=== PATIENT | female | born 1940 | race Caucasian/White ===

== ENCOUNTER 2016-11-06 18:48 | Emergency (ER) | payer OTHER ==
[~2016-11-06] VITALS: Ht 165.1 cm; Wt 71.2 kg
[~2016-11-06 18:48] MED LIST: ACETAMINOPHEN650 M5 PO; ALAVERT10 MG PO; ALDACTONE25 MG PO; APAP500 PO; ASPIRIN325 PO; ASPIRIN81 M2 PO; BENZOCAINE PO; CARVEDILOL6.25 MG PO; COLACE100 MG PO; D-20002000 UNIT PO; DILAUDID2 MG PO; EFFIENT10 MG PO; KLOR-CON 10 ER10 MEQ PO; LEVAQUIN 500 M500 MG PO; LIPITOR40 MG PO; LORATIDINE 10 M10 M1 PO; MAG-AL PLUS SUS30 ML PO; MAGNESIUM400 MG PO; METOPROLOL SUCC25 M1 PO; MORPHINE PO; MORPHINE SULFAT15 M3 PO; MS CONTIN15 MG PO; NITROSTAT0.4 MG SL; OMEPRAZOLE 20 M20 M1 PO; ONDANSETRON HCL4 M2 PO; ROBAXIN 750 MG750 M1 PO; SENNA PO; TRAMADOL 50 MG50 MG PO; VITAMIN D-32000 UNIT PO; VITAMIN D32000 UNIT PO; ZESTRIL5 MG PO
[2016-11-06 22:03] VITALS: BP 132/74
== END 2016-11-06 22:04 | disposition home or self-care (01) ==
LOC: ER 18:48
DX: M54.5 Low back pain (principal); M25.562 Pain in left knee; M79.644 Pain in right finger(s); M25.512 Pain in left shoulder; I25.2 Old myocardial infarction; K21.9 Gastro-esophageal reflux disease without esophagitis; I10 Essential (primary) hypertension; Z95.0 Presence of cardiac pacemaker; Z85.43 Personal history of malignant neoplasm of ovary; Z88.5 Allergy status to narcotic agent; Z88.2 Allergy status to sulfonamides; V43.52XA Car driver injured in collision with other type car in traffic accident, initial encounter; Y93.I9 Activity, other involving external motion; Y92.481 Parking lot as the place of occurrence of the external cause; Y99.8 Other external cause status

== ENCOUNTER → 2017-06-29 | Outpatient (CLI) | payer OTHER ==
[~2017-06-29] MED LIST changes: +MOBIC7.5 MG PO; +NEURONTIN 300300 M1 PO
== END ==
LOC: ULTRA 05:57
DX: I77.9 Disorder of arteries and arterioles, unspecified (principal); Z88.5 Allergy status to narcotic agent; Z88.2 Allergy status to sulfonamides

== ENCOUNTER → 2017-07-31 | Outpatient (CLI) | payer OTHER | LOC: ULTRA 06:33 | DX: M79.604 Pain in right leg (principal); M79.605 Pain in left leg; M79.89 Other specified soft tissue disorders ==

== ENCOUNTER → 2018-01-15 | Outpatient (CLI) | payer OTHER ==
[~2018-01-15] MED LIST changes: +CO Q-10100 MG PO; +FLONASE 0.05%50 MCG NASAL; +FOSAMAX 70 MG T70 MG PO; +LASIX 20 MG TAB20 MG PO; +METOPROLOL TART25 MG PO; +PROTONIX40 M3 PO
== END ==
LOC: SEN 13:47
DX: J20.9 Acute bronchitis, unspecified (principal)

== ENCOUNTER → 2018-02-16 | Outpatient (CLI) | payer OTHER | LOC: CV 01-04 08:30 → NUC 07:12 → CV 07:12 | DX: I10 Essential (primary) hypertension (principal); I48.91 Unspecified atrial fibrillation ==

== ENCOUNTER → 2018-05-16 | Outpatient (CLI) | payer OTHER ==
--- NOTE | 2018-05-16 15:21 | 2DMMODE ---
[facility] [place] [address] 2 D/M-MODE ECHOCARDIOGRAM Name: DAYANARA WALSH Room #: REG La#: [id number] ������������� Admission: 05/16/18 ������������� Attend Phys: Celso Harrison, Discharge: ��� ������������� ��� Date of : 38 Date of Service: 05/16/18 1520 �� Report #: [id number] �������� ��������������������������������������������[id number] THIS REPORT FOR: //name// APPROVED REPORT Study performed: 05/16/2018 11:20:15 EXAM: Comprehensive 2D, Doppler, and color-flow Echocardiogram Patient Location: Out-Patient Status: routine BSA: 1.69 HR: 60 bpm BP: 136/84 mmHg Rhythm: Pacemaker/irregular Other Information Study Quality: Adequate Indications Atrial Fibrillation Hx: [place], stents, Pacemaker. 2D Dimensions RVDd: 28.79 mm IVSd: 12.11 (7-11mm) LVOT Diam: 19.91 (18-24mm) LVDd: 45.55 mm PWd: 10.94 (7-11mm) Ascending Ao: 39.43 (22-36mm) LVDs: 35.50 (25-40mm) Aortic Root: 40.10 mm Volumes Left Atrial Volume (Systole) Single Plane 4CH: 33.39 mL Single Plane 2CH: 37.37 mL LA ESV Index: 22.00 mL/m2 Aortic Valve AoV Peak Bryan.: 1.10 m/s AO Peak Gr.: 4.86 mmHg LVOT Max P.89 mmHg LVOT Max V: 0.85 m/s JANA Vmax: 2.40 cm2 AI Vmax: 3.96 m/s AI Rich: 2.01 m/s2 AI PHT: 570.27 ms [facility] [address] [place] [address] 2 D/M-MODE ECHOCARDIOGRAM Name: DAYANARA WALSH Room #: [facility]#: [id number] ������������� Admission: 05/16/18 ������������� Attend Phys: Celso Harrison, Discharge: ��� ������������� ��� Date of : 38 Date of Service: 05/16/18 1520 �� Report #: [id number] �������� ��������������������������������������������[id number] Mitral Valve E/A Ratio: 0.7 MV Decel. Time: 268.64 ms MV E Max Bryan.: 0.31 m/s MV A Bryan.: 0.46 m/s MV PHT: 77.91 ms IVRT: 106.11 ms Pulmonary Valve PV Peak Bryan.: 0.65 m/s PV Peak Gr.: 1.71 mmHg Tricuspid Valve TR Peak Bryan.: 2.19 m/s RAP Estimate: 5.00 mmHg TR Peak Gr.: 19.18 mmHg PA Pressure: 24.00 mmHg Left Ventricle The left ventricle is normal size. Mild basal septal hypertrophy is present. Left ventricular systolic function is low normal. LVEF is 50%. Mild diastolic dysfunction is present (impaired relaxation pattern). Right Ventricle The right ventricle is normal size. The right ventricular systolic function is normal. Pacemaker lead is present in the right ventricle. Atria The left atrium size is normal. The right atrium size is normal. Aortic Valve The aortic valve is normal in structure. Moderate aortic regurgitation. There is no aortic valvular stenosis. Mitral Valve Mitral valve leaflets are mildly thickened. Mild mitral regurgitation. Tricuspid Valve The tricuspid valve is normal in structure. Mild to moderate tricuspid regurgitation. Estimated PAP is 25mmHg. Pulmonic Valve The pulmonary valve is normal in structure. Trace pulmonic regurgitation. [facility] [address] 2 D/M-MODE ECHOCARDIOGRAM Name: DAYANARA WALSH Room #: MYRIAM AISHWARYA Tovar#: [id number] ������������� Admission: 05/16/18 ������������� Attend Phys: Celso Harrison, Discharge: ��� ������������� ��� Date of : 38 Date of Service: 05/16/18 1520 �� Report #: [id number] �������� ��������������������������������������������[id number] [employer] Aortic root is mildly dilated at 4.0cm. The ascending aorta is mildly dilated at 3.9cm. IVC is normal in size and collapses >50% with inspiration. Pericardium There is no pericardial effusion. <Conclusion> The left ventricle is normal size. Mild basal septal hypertrophy is present. Left ventricular systolic function is low normal. LVEF is 50%. Mild diastolic dysfunction is present (impaired relaxation pattern). The right ventricle is normal size. Pacemaker lead is present in the right ventricle. The left atrium size is normal. Moderate aortic regurgitation. Mild mitral regurgitation. Mild to moderate tricuspid regurgitation. Estimated PAP is 25mmHg. Aortic root is mildly dilated at 4.0cm. Aortic root is mildly dilated at 4.0cm. There is no pericardial effusion. ��������������������������������������������� <ELECTRONICALLY SIGNED> ���������������������������������������� By: Celso Harrison MD, FACC ��������������������������������������������� 05/16/18 1520 1520 1520 Celso Harrison MD, FACC /INF
== END ==
LOC: CV 10:58
DX: I08.3 Combined rheumatic disorders of mitral, aortic and tricuspid valves (principal); I48.91 Unspecified atrial fibrillation; I25.2 Old myocardial infarction; Z95.5 Presence of coronary angioplasty implant and graft

== ENCOUNTER 2018-12-02 05:28 | Emergency (ER) | payer OTHER ==
[~2018-12-02] VITALS: Ht 162.6 cm; Wt 57.8 kg
[2018-12-02 05:48] VITALS: BP 143/63
== END 2018-12-02 07:32 | disposition left against medical advice (07) ==
LOC: ER 05:28
DX: M79.661 Pain in right lower leg (principal); M79.662 Pain in left lower leg; I25.2 Old myocardial infarction; I10 Essential (primary) hypertension; K21.9 Gastro-esophageal reflux disease without esophagitis; Z95.0 Presence of cardiac pacemaker; Z98.890 Other specified postprocedural states; M43.22 Fusion of spine, cervical region; Z88.5 Allergy status to narcotic agent; Z88.2 Allergy status to sulfonamides

== ENCOUNTER → 2019-01-25 | Outpatient (CLI) | payer OTHER | LOC: ULTRA 15:02 | DX: M25.872 Other specified joint disorders, left ankle and foot (principal); M25.871 Other specified joint disorders, right ankle and foot ==

== ENCOUNTER 2019-01-27 16:48 | Inpatient (IN) | payer OTHER ==
[~2019-01-27] VITALS: Ht 162.6 cm; Wt 64.4 kg
--- NOTE | ~2019-01-27 | HC ---
[facility] [place] [address] CONSULTATION Name: DAYANARA WALSH Room #: 450-P ADM IN M.R.#: [id number] Admission: 01/27/19 Attend Phys: Stephen Cardona MD Discharge: Date of : 38 Report #: [id number] THIS REPORT FOR: //name// CC: Stephen Cardona REASON FOR CONSULTATION: Acute kidney injury. REASON FOR PRESENTATION: Abnormal labs. HISTORY OF PRESENT ILLNESS: This is a 78-year-old with a baseline creatinine of around 1.5. She is known to have hypertension, coronary artery disease, status post pacemaker insertion. She also is known to have ovarian cancer, status post multiple surgeries for that. [place] was out [place] country [place] of weeks ago. She was evaluated by her primary care physician for what she describes as urinary tract infection and was prescribed some antibiotic. She also has had some issues with gout and was taking indomethacin for the last couple of weeks. Laboratory values came back with a creatinine value of 3.8. She was also maintained on spironolactone and her potassium was 5.6. She denies any nausea or vomiting. No urinary symptoms. She was admitted to further evaluate her acute kidney injury. PAST MEDICAL HISTORY: 1. Hypertension. 2. Coronary artery disease. 3. Status post pacemaker insertion. 4. Left knee arthroscopy. 5. Disk fusion at L2-L3, L4-L5, L5-S1. 6. Cervical neck surgeries. 7. Ovarian cancer. 8. Status post ablation for her rhythm issues. MEDICATIONS: 1. Indomethacin. 2. Metoprolol. 3. Lasix. 4. Aspirin. 5. Potassium. 6. Spironolactone. ALLERGIES: CODEINE, HYDROMORPHONE. SOCIAL HISTORY: She is retired. No drug or alcohol abuse. REVIEW OF SYSTEMS: No known kidney disease in the family. REVIEW OF SYSTEMS: GENERAL: Significant for weakness. [facility] [address] [place] [address] CONSULTATION Name: DAYANARA WALSH Room #: 450-P ADM IN .R.#: [id number] Admission: 01/27/19 Attend Phys: Stephen Cardona MD Discharge: Date of : 38 Report #: [id number] CARDIOVASCULAR: No chest pain or palpitation. PULMONARY: No cough or hemoptysis. GASTROINTESTINAL: No nausea or vomiting. GENITOURINARY: Recently treated for urinary tract infections. MUSCULOSKELETAL: Gout episodes. This was involving her knee, big toe, hands. PHYSICAL EXAMINATION: GENERAL: She is alert, oriented. VITAL SIGNS: Pulse rate 67, temperature is 37.1, blood pressure is 122/53. HEAD AND NECK: No jugular venous distention. CHEST: Clear to auscultation bilaterally. CARDIOVASCULAR: Regular with no rub detected. ABDOMEN: Soft, nontender with no hepatosplenomegaly. LOWER EXTREMITIES: No edema with intact peripheral pulses. LABORATORY VALUES DATA: Reviewed. Her sodium is 133, potassium is 5.6, BUN is 70, creatinine is 3.6, uric acid is 11.5. IMPRESSION AND PLAN: 1. Acute kidney injury related to indomethacin. 2. Hyperkalemia due to Aldactone and other nonsteroidal anti-inflammatory medications along with potassium supplementation. 3. Hyponatremia. 4. Known coronary artery disease. 5. Status post pacemaker insertion. 6. Discontinue all offending agents of the above-mentioned. 7. Start IV fluid. 8. Expect this to fully recover. 9. We will need her gout to be treated with steroids for now and then we will handle her uric acid level when the acute event resolves. By: [id number] Maira Xavier MD /nt
[2019-01-27 16:48] VITALS: BP 148/82
[2019-01-27 17:32] LABS: URINE BILIRUBIN NEGATIVE (Negative); URINE BLOOD TRACE (Negative); URINE CLARITY CLEAR; URINE COLOR YELLOW; URINE GLUCOSE-RANDOM* NEGATIVE (Negative); URINE KETONES TRACE (Negative); URINE LEUKOCYTES-REFLEX NEGATIVE (Negative); URINE NITRITE-REFLEX NEGATIVE (Negative); URINE PROTEIN (DIPSTICK) NEGATIVE (Negative); URINE UROBILINOGEN 0.2 E.U./dl (0.2-1.0)
[2019-01-27 18:15] LABS: ABSOLUTE NEUTROPHILS 7.4 thou/uL (1.4-8.2); BASOPHILS 0.7 % (0.0-2.0); EOSINOPHILS 1.6 % (0.0-3.0); HEMATOCRIT 34.7 % (37.0-47.0); HEMOGLOBIN 11.8 gm/dL (12.0-15.0); LYMPHOCYTES 8.8 % (24.0-44.0); MCH 31.6 pg (26.0-34.0); MCHC 33.9 g/dL (28.0-37.0); MCV 93.1 fL (80.0-100.0); PLATELET COUNT 211 thou/uL (150-400); POLYS 77.9 % (36.0-66.0); RBC 3.73 mil/uL (4.20-5.00); RDW 13.7 % (10.5-14.5); WBC 9.6 thou/uL (4.0-11.0)
[2019-01-27 18:29] LABS: CALCIUM 9.5 mg/dL (8.5-10.1); CREATININE 3.6 mg/dL (0.6-1.0)
[2019-01-27 18:30] LABS: POTASSIUM 5.6 mmol/L (3.5-5.1)
[2019-01-27 18:34] LABS: ALBUMIN 2.5 g/dL (3.4-5.0); TOTAL BILIRUBIN 0.5 mg/dL (<0.1-1.0); TOTAL PROTEIN 6.3 g/dL (6.4-8.2)
[2019-01-27 19:39] VITALS: BP 148/60
[2019-01-27 20:14] VITALS: BP 144/65
--- NOTE | 2019-01-27 20:21 | NUR ---
PT COMPLAINING ABOUT DELAY IN GETTING WARM BLANKET, NO ONE TO COMPLAIN TO WILL NOTIFY PT ADVOCATE TO SEE IN MORNING. REPORTS "THIS IS WHY YOU ARE GOING BANKRUPT". INFORMED WE WILL HAVE PT ADVOCATE SPEAK WITH PT IN THE AM. HER COMPLAINTS OF NO ONE TO CUT UP HER FOOD AND DELAY IN GETTING BLANKED.
[2019-01-27 20:30] VITALS: BP 130/91
--- NOTE | 2019-01-27 23:21 | NUR ---
PATIENT ARRIVED VIA WHEELCHAIR FROM ED AT 2024. ALERT AND ORIENTED X4. DENIES PAIN. IVF INFUSING W/O COMPLICATION. PATIENT HAS MEDICATION, ONE IN A PRESCRIPTION BOTTLE AND A WEEKLY SORTING WITH LOOSE MEDICATIONS. PATIENT REFUSED TO HAVE THIS NURSE SEND TO PHARMACY SO THEY WERE PLACED IN THE CLOSET. ARGUMENTATIVE AT TIMES, HOWEVER, EVENTUALLY MORE COOPERATIVE WITH CARE. SCD'S IN PLACE. WILL MONITOR.
[2019-01-28 05:16] VITALS: BP 108/59
--- NOTE | 2019-01-28 05:59 | NUR ---
PATIENT REFUSED AM BLOOD DRAW. TOLD THE WOUND TREATMENT RN TO COME BACK LATER.
--- NOTE | 2019-01-28 09:57 | NUR ---
Nutrition: Pt assessed due to 2 point trigger per nutrition screen on admit w/ 34# or more of wt loss in last 3 mo, decreased appetite. Admit: acute renal failure, dehydration, gout, nausea. No H&P note yet, but ED note states recent return from 2 wk trip to [place]. Pt reports wt loss started August/September; loss of appetite, no interest in going to kitchen. Agrees some might be heat related w/ summer temps, but lower appetite still ongoing. Ate some of breakfast, but no meal records yet charted. EMR shows conflicting wt loss reports. 01/01/17: 156# per pt report 12/02/18: 127.5# per pt report, would reflect potential 28# wt loss 01/27/19: 142.3# per bedscale this admit, would indicate a +15# gain in 2 mo Not enough evidence to confirm significant wt loss, with most recent wt's indicating a 15# gain from Nov-Jan. Pt stated not worried at all about loss. Seemed very angry about everything. Started to obtain some food preferences to help make menu changes and boost po success. Was planning to take lunch & dinner orders but pt became too frustrated and gave up, refusing RD help. Helped relocate room phone to bedside table w/ friend's assistance. Low nutrition risk for now as pt declined interventions. Follow po trends.
[2019-01-28 10:00] VITALS: BP 122/53
[2019-01-28 10:31] LABS: CALCIUM 8.4 mg/dL (8.5-10.1)
[2019-01-28 10:32] LABS: POTASSIUM 4.3 mmol/L (3.5-5.1)
--- NOTE | 2019-01-28 11:19 | NUR ---
Received awake on bed. On room air. Pt very irritable when I came in to introduce my self, she is very upset re: call light- work order has already been out in by night worker- offered pt to be transferred to another room but refused. Refused to take oral tablets, blood test and vital signs monitoring as well- went to patient, talked and explained to her but still refused. No nausea, no vomiting and no abdominal pain noted. With Ns 1t 100cc/hr, infusing well at R wrist. With redness noted on bilateral big toes. Went back to patient's room and tried to talk to her again, agreed to have her blood drawn for BMP- taken by lab staff, vital signs taken and agreed to be transferred to [facility]- assured her that call light is working and I personally checked it before she transfers- pt cooperative afterwards. Dr Cardona and Dr Wolf informed re: transfer to [facility]. A/W urine sample. On standby assist. Assisted in ADLs. Seen by catalyst plant supervisor today, assisted pt in ordering her meals.
[2019-01-28 15:00] VITALS: BP 103/55
[2019-01-28 15:27] LABS: URINE CREATININE-RANDOM* 131.3 mg/dL
--- NOTE | 2019-01-28 16:32 | NUR ---
PT ADMITTED RELATED TO ARF, DEHYDRATION, GOUT, NAUSEA. CM REVIEWED CHART AND SPOKE WITH CARE TEAM. CM MET WITH PT AT BEDSIDE THIS DAY. PT IS A&O X4. CM ROLE INTRODUCED. PT INDICATED SHE LIVES ALONE IN A HOUSE WITH 4 STEPS TO ENTER AND NO STEPS INSIDE. 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 PT INDICATED NO DME OR HH HX. PT INDICATED SHE PLANS TO RETURN HOME ONCE MEDICALLY STABLE. CM TO FOLLOW INDICATED WITH DC PLANNING.
[2019-01-28 20:03] VITALS: BP 114/51
--- NOTE | 2019-01-29 03:50 | NUR ---
PT CARE ASSUMED AT 1900 WITH PT IN BED.PT IS A/O X4.PT IS VERY IRRITABLE.PT COMPLAINED OF GI UPSET AND DR ROBERTS CALLED AND TUMS ORDERED AND GIVEN WITH RELIEF.PT IS [place] AND HAD FAWAD HEARING AIDS.CONTINUE TO MONITOR POC
[2019-01-29 05:41] LABS: CALCIUM 8.5 mg/dL (8.5-10.1); CREATININE 2.4 mg/dL (0.6-1.0); PHOSPHORUS 3.6 mg/dL (2.5-4.9); POTASSIUM 4.7 mmol/L (3.5-5.1)
[2019-01-29 06:54] LABS: ALBUMIN 2.3 g/dL (3.4-5.0)
[2019-01-29 08:02] VITALS: BP 142/60
--- NOTE | 2019-01-29 11:10 | NUR ---
Received awake on bed. Requested to have her medications given at a later time because she wanted to rest. A+Ox4. On room air. Vital signs stable. With NS at 100cc/hr, infusing well at L wrist. Able to turn in her bed. Refused to have breakfast- she said she was not feeling well, Dr Cardona aware and was in the room to assess patient, ordered breathing treatment for her, chest xray and flonase; pending discharge ordered- a/w results of chest xray. Assisted in ADLs. Up ad jai.
[2019-01-29 17:30] VITALS: BP 135/72
[2019-01-29 19:55] VITALS: BP 131/52
--- NOTE | 2019-01-30 03:20 | NUR ---
PT CARE ASSUMED WITH PT IN BED WITH MELVI.PT IS A/O X4.PT COMPLAINED OF GI UPSET AND WAS GIVEN TUMS.PT HAD [address] ROBERTS INFORMED AND ORDEDED IMODIUM AND LABS ( CDIFF AND OVA AND PARASITES).ISOLATION PRECAUTION FOR CDIFF PUT IN PLACE.PT IS IRRITABLE.WAITING FOR STOOL SAMPLE TO SEND TO LAB .CONTINUE TO MONITOR PLAN OF CARE
[2019-01-30 08:59] VITALS: BP 140/60
[2019-01-30 09:16] LABS: CALCIUM 9.6 mg/dL (8.5-10.1); CREATININE 1.7 mg/dL (0.6-1.0)
[2019-01-30 12:22] VITALS: BP 140/60
--- NOTE | 2019-01-30 13:59 | NUR ---
Assumed care of pt at 0700. Pt a&o x4. Anxious and irritable about not being able to have stool sample collected. Pt voided in clean hat but sample contaminated with urine. Provider verbal order to discharge patient with home kit. Pt able to provide stool sample before discharge. Provider aware.
== END 2019-01-30 14:45 | disposition home or self-care (01) | DRG 682 ==
LOC: ER 16:48 → 4W 19:32 → EROBS 19:32 → 4W 20:15
PROVIDERS: Hospitalist; Physician Assistant; ADMIT Family Medicine
DX: N17.0 Acute kidney failure with tubular necrosis (principal); E43 Unspecified severe protein-calorie malnutrition; E87.1 Hypo-osmolality and hyponatremia; M10.071 Idiopathic gout, right ankle and foot; I10 Essential (primary) hypertension; K21.9 Gastro-esophageal reflux disease without esophagitis; T39.395A Adverse effect of other nonsteroidal anti-inflammatory drugs [NSAID], initial encounter; I25.10 Atherosclerotic heart disease of native coronary artery without angina pectoris; J40 Bronchitis, not specified as acute or chronic; T50.0X5A Adverse effect of mineralocorticoids and their antagonists, initial encounter; T50.3X5A Adverse effect of electrolytic, caloric and water-balance agents, initial encounter; E86.0 Dehydration; I25.2 Old myocardial infarction; Z95.0 Presence of cardiac pacemaker; Z88.6 Allergy status to analgesic agent; Z88.2 Allergy status to sulfonamides; Z88.8 Allergy status to other drugs, medicaments and biological substances; Z85.43 Personal history of malignant neoplasm of ovary; Y92.89 Other specified places as the place of occurrence of the external cause; Z79.1 Long term (current) use of non-steroidal anti-inflammatories (NSAID); Z28.21 Immunization not carried out because of patient refusal
CPT/HCPCS: 10040

== ENCOUNTER → 2019-06-14 | Outpatient (CLI) | payer OTHER | LOC: SJCVC 11:02 | DX: Z45.018 Encounter for adjustment and management of other part of cardiac pacemaker (principal); I25.10 Atherosclerotic heart disease of native coronary artery without angina pectoris; I48.0 Paroxysmal atrial fibrillation; I10 Essential (primary) hypertension; E78.00 Pure hypercholesterolemia, unspecified; M10.9 Gout, unspecified; Z87.891 Personal history of nicotine dependence; Z79.899 Other long term (current) drug therapy ==

== ENCOUNTER 2020-02-11 12:45 | Emergency (ER) | payer OTHER ==
[~2020-02-11] VITALS: Ht 162.6 cm; Wt 53.5 kg
[2020-02-11 13:21] LABS: ABSOLUTE NEUTROPHILS 10.1 thou/uL (1.4-8.2); BASOPHILS 0.5 % (0.0-2.0); EOSINOPHILS 0.1 % (0.0-3.0); HEMATOCRIT 38.9 % (37.0-47.0); HEMOGLOBIN 13.1 gm/dL (12.0-15.0); LYMPHOCYTES 6.9 % (24.0-44.0); MCHC 33.7 g/dL (28.0-37.0); MCV 94.9 fL (80.0-100.0); MONOCYTES 10.6 % (1.0-8.0); PLATELET COUNT 181 thou/uL (150-400); POLYS 81.9 % (36.0-66.0); RDW 14.1 % (10.5-14.5); WBC 12.4 thou/uL (4.0-11.0)
[2020-02-11 13:42] LABS: CALCIUM 9.6 mg/dL (8.5-10.1); CREATININE 2.5 mg/dL (0.6-1.0); POTASSIUM 3.7 mmol/L (3.5-5.1)
[2020-02-11 13:45] LABS: URIC ACID* 6.6 mg/dL (2.6-6.0)
[2020-02-11] MEDS ORDERED: PREDNISONE 10 M10 M1 PO (14:56)
[2020-02-11 18:35] VITALS: BP 120/54
[2020-02-11 19:20] LABS: ANISOCYTOSIS 1+; MICROCYTES 2+; PLATELET ESTIMATE NORMAL
[2020-02-11 19:21] LABS: HYPOCHROMASIA 2+; OVALOCYTES 1+; POIKILOCYTOSIS 1+; SCHISTOCYTES 1+
== END 2020-02-11 18:30 | disposition home or self-care (01) ==
LOC: ER 12:45
PROVIDERS: Physician Assistant
DX: M10.9 Gout, unspecified (principal); I25.2 Old myocardial infarction; K21.9 Gastro-esophageal reflux disease without esophagitis; I12.9 Hypertensive chronic kidney disease with stage 1 through stage 4 chronic kidney disease, or unspecified chronic kidney disease; N18.9 Chronic kidney disease, unspecified; Z95.0 Presence of cardiac pacemaker; Z79.899 Other long term (current) drug therapy; Z88.5 Allergy status to narcotic agent; Z88.2 Allergy status to sulfonamides; Z88.8 Allergy status to other drugs, medicaments and biological substances

== ENCOUNTER → 2020-04-02 | Outpatient (CLI) | payer OTHER ==
[~2020-04-02] MED LIST changes: +PREDNISONE 10 M10 M1 PO
== END ==
LOC: SJCVC 11:50
PROVIDERS: ATTEND Internal Medicine Cardiovascular Disease
DX: I25.10 Atherosclerotic heart disease of native coronary artery without angina pectoris (principal); E78.00 Pure hypercholesterolemia, unspecified; I10 Essential (primary) hypertension; I48.0 Paroxysmal atrial fibrillation; M10.9 Gout, unspecified; Z98.890 Other specified postprocedural states; Z87.891 Personal history of nicotine dependence; Z79.899 Other long term (current) drug therapy

== ENCOUNTER → 2021-01-27 | Outpatient (CLI) | payer OTHER | LOC: SJCVCIMAG 07:49 | PROVIDERS: ATTEND Internal Medicine Cardiovascular Disease | DX: I08.0 Rheumatic disorders of both mitral and aortic valves (principal); R94.31 Abnormal electrocardiogram [ECG] [EKG]; I44.7 Left bundle-branch block, unspecified; I25.10 Atherosclerotic heart disease of native coronary artery without angina pectoris; I48.0 Paroxysmal atrial fibrillation; E78.00 Pure hypercholesterolemia, unspecified; F41.9 Anxiety disorder, unspecified; M10.9 Gout, unspecified; I12.9 Hypertensive chronic kidney disease with stage 1 through stage 4 chronic kidney disease, or unspecified chronic kidney disease; N18.9 Chronic kidney disease, unspecified; Z87.891 Personal history of nicotine dependence; Z79.899 Other long term (current) drug therapy; Z88.5 Allergy status to narcotic agent; Z88.2 Allergy status to sulfonamides; Z88.8 Allergy status to other drugs, medicaments and biological substances; Z95.0 Presence of cardiac pacemaker ==